=== PATIENT | female | born 1985 | race Caucasian/White ===

== ENCOUNTER 2018-10-05 07:37 | Observation (INO) | payer MEDICAID ==
[~2018-10-05] VITALS: Ht 167.6 cm; Wt 58.2 kg
[2018-10-05] VITALS (9 sets, daily range): BP systolic 103–128; BP diastolic 60–84
[~2018-10-05 07:37] MED LIST: NO HOME MEDS
[2018-10-05] MEDS ORDERED: cefazolin/dext.iso 2gm/100 ML IV ONE (08:15)
[2018-10-05] MEDS ORDERED: ringers solution, lacted 1,000 ML IV SCH ×2 (08:15→13:39)
[2018-10-05] MEDS ORDERED: famotidine 20mg tablet PO ONE (08:15)
[2018-10-05 10:17] LABS: BASOPHILS % (AUTO) 0.5 % (0-1); EOSINOPHILS # (AUTO) 0.1 X10'3 (0-0.9); EOSINOPHILS % (AUTO) 2.7 % (0-6); LYMPHOCYTES # (AUTO) 1.3 X10'3 (1.1-4.8); LYMPHOCYTES % (AUTO) 28.3 % (21-51); MEAN CORPUSCULAR HGB CONC 33.1 g/dL (33.0-36.5); MEAN CORPUSCULAR VOLUME 84.4 FL (78-98); MEAN PLATELET VOLUME 8.7 FL (7.4-10.4); MONOCYTES # (AUTO) 0.3 X10'3 (0-0.9); NEUTROPHILS # (AUTO) 2.8 X10'3 (1.8-7.7); NEUTROPHILS % (AUTO) 61.5 % (42-75); PRE OP HEMATOCRIT 36.1 % (35.0-45.0); PRE OP PLATELET COUNT 213 X10'3 (140-440); RED BLOOD COUNT 4.28 X10'6 (4.20-5.60); RED CELL DISTRIBUTION WIDTH 14.2 % (11.5-14.5)
[2018-10-05 10:28] LABS: ALBUMIN 3.6 G/DL (3.4-5.0); ALBUMIN/GLOBULIN RATIO 0.9 (1.1-1.5); ALKALINE PHOSPHATASE 72 IU/L (46-116); BLOOD UREA NITROGEN 11 MG/DL (7-18); BUN/CREATININE RATIO 18.3 (6.6-38.0); CALCIUM 8.5 MG/DL (8.5-10.1); CHLORIDE 104 MMOL/L (99-107); PRE OP ALT 27 U/L (30-65); PRE OP ANION GAP 10 (8-16); PRE OP AST 15 U/L (10-37); PRE OP BILIRUB, TOTAL 0.5 MG/DL (0.0-1.0); PRE OP GLUCOSE 90 MG/DL (70-104); PRE OP SODIUM 139 MMOL/L (135-145); TOTAL CARBON DIOXIDE 25.4 MMOL/L (24-32); TOTAL PROTEIN 7.5 G/DL (6.4-8.2); eGFR > 90 ML/MIN
[2018-10-05 10:30] LABS: PREOP HCG, QL SERUM NEGATIVE (NEGATIVE)
[2018-10-05] MEDS ORDERED: BUPIVAcaine/PF 2.5 mg/ml (0.25%) 30ml vial ONE ×2 (12:17→12:46)
[2018-10-05] MEDS ORDERED: sevoflurane 250ml liquid IH ONE (12:35)
[2018-10-05] MEDS ORDERED: midazolam 2 mg/2 ml injection ONE (12:43)
[2018-10-05] MEDS ORDERED: fentaNYL/PF 50MCG/1 ML 2ML syringe ONE ×2 (12:43→13:18)
[2018-10-05] MEDS ORDERED: BUPIVACAINE liposomal/PF 13.3 MG/ML vial IM ONE (12:51)
[2018-10-05] MEDS ORDERED: naloxone 0.4 mg/ml inj IV PRN (13:05)
[2018-10-05] MEDS ORDERED: ondansetron/PF 4mg/2ml inj IV PRN ×2 (13:05→13:40)
[2018-10-05] MEDS ORDERED: CADD PCA waste documentation MC PRN (13:05)
[2018-10-05] MEDS ORDERED: proCHLORperazine 10 MG/2 ml inj IV PRN (13:40)
[2018-10-05] MEDS ORDERED: meperidine/PF 25mg/ml syringe IV PRN ×3 (13:40)
[2018-10-05] MEDS ORDERED: morphine 4 MG/ML inj SYRINge IV PRN ×2 (13:40)
--- NOTE | 2018-10-05 13:49 | NUR ---
Received from OR via surgical bed, accompanied by Anesthesiologist Finn and report given by Anesthesiolgist. Pt has IV to right foot with IVF at 100/hr, lap sites x3 with bandaids CDI. O2 mask at 10L, all VS stable. SCDs placed on patient.
[2018-10-05] MEDS: HYDROmorphone/NS 1 mg/ml CADD 50 ML IV SCH ×6 (14:27→23:00)
[2018-10-05] MEDS ORDERED: LIDOcaine 2% (20mg/ml) 5ml vial ONE (14:30)
[2018-10-05] MEDS ORDERED: dexamethasone sod phosphate 4mg/ml inj. ONE (14:30)
[2018-10-05] MEDS ORDERED: rocuronium 10mg/ml inj IV ONE (14:30)
[2018-10-05] MEDS ORDERED: neostigmine methylsulfate 1 MG/ML 10ml vial ONE (14:30)
[2018-10-05] MEDS ORDERED: ondansetron/PF 4mg/2ml inj ONE (14:30)
[2018-10-05] MEDS ORDERED: glycopyrrolate 0.2mg/ml inj ONE (14:30)
[2018-10-05] MEDS ORDERED: propofol inj 20 ML IV ONE (14:30)
[2018-10-05] MEDS ORDERED: sugammadex 200mg/2ml injection IV ONE (14:33)
--- NOTE | 2018-10-05 15:09 | NUR ---
Report called to receiving nurse. Transferred via surgical bed with SCDs on. Belongings on bed with patient and family at bedside. Special Issues communicated to receiving nurse MIRANDA Guillory. Pt alert and oriented, VS stable, post op vitals begun in new room with BLL, call light given to patient. MEDICAL SECRETARY pump education reinforced with mother bedside. Lap sites remain CDI, IV in foot remains intact. New large volume bag with potassium to be sent up by pharmacy.
--- NOTE | 2018-10-05 15:13 | NUR ---
Prescription medications placed in patient cabinet in room, Pastora JEAN notified that mother is not in room at this time. Pastora states she will give mother of patient prescription meds.
--- NOTE | 2018-10-05 15:16 | NUR ---
Patient arrived to unit after receiving report from Fany JEAN.
--- NOTE | 2018-10-05 15:18 | NUR ---
Medications for patients discharge have been given to patients mother to take home. Pain medications from [facility] bedside service.
[2018-10-05] MEDS: ceFAZolin 1GM/D5W- ADD-VANTAGE 50 ML IV SCH (16:25)
[2018-10-05] MEDS: ketorolac trometh. 30mg/ml inj. IV PRN ×2 (16:25→22:37)
--- NOTE | 2018-10-05 18:30 | NUR ---
Patient in room RAMBO 340. I have received report from MIRANDA Guillory and had the opportunity to ask questions and assume patient care.
--- NOTE | 2018-10-05 18:45 | NUR ---
number given/attempts on CADD pump accidentally cleared.
[2018-10-05] MEDS: potassium CL 20mEq in D5-1/2NS 1,000 ML IV SCH ×2 (21:05→22:43)
[2018-10-06] MEDS: ceFAZolin 1GM/D5W- ADD-VANTAGE 50 ML IV SCH ×2 (00:18→07:47)
[2018-10-06 00:46] VITALS: BP 109/68
[2018-10-06] MEDS: HYDROmorphone/NS 1 mg/ml CADD 50 ML IV SCH ×8 (01:00→15:00)
[2018-10-06 04:11] VITALS: BP 123/66
[2018-10-06] MEDS: potassium CL 20mEq in D5-1/2NS 1,000 ML IV SCH ×2 (06:53→13:05)
--- NOTE | 2018-10-06 06:56 | NUR ---
Problems reprioritized. Patient report given, questions answered & plan of care reviewed with MIRANDA Guzman.
--- NOTE | 2018-10-06 06:58 | NUR ---
Patient in room [facility]BO 340. I have received report from Yovany JEAN and had the opportunity to ask questions and assume patient care.
[2018-10-06 07:00] VITALS: BP 110/70
[2018-10-06] MEDS ORDERED: HYDR-4353 PO (15:46)
--- NOTE | 2018-10-06 17:06 | NUR ---
patient resting and sleeping most of shift. using Cadd pump with affect. Seen by DR Arceo is for discharge. patient had to wait for ride. All DC instructions given to patient. patient discharged home with parent 1630hrs in stable condition. [place] prescription had been given to patient 10/05/18 and mother had taken it home per patient. .
== END 2018-10-06 17:08 | disposition home or self-care (01) ==
LOC: PAS 07:37 → SUR 3N 15:53
PROVIDERS: ADMIT Surgery; ATTEND Surgery
DX: K42.9 Umbilical hernia without obstruction or gangrene (principal); N28.89 Other specified disorders of kidney and ureter
CPT/HCPCS: 36415; 49653; 80053; 84703; 85025; 87081; 93005; 96365; 96366; 96375; 96376; C1713; C1758; C1781; C9290; C9399; G0378; J0690; J1100; J1170; J1885; J2001; J2250; J2405; J2704; J2710; J3010; J3480; J3490; J7120; A4215; A4618; A7000

== ENCOUNTER 2018-12-24 09:13 | Emergency (ER) | payer MEDICAID ==
[~2018-12-24] VITALS: Ht 167.6 cm; Wt 57.1 kg
[2018-12-24 09:16] VITALS: BP 131/81
[2018-12-24] MEDS ORDERED: penicillin V potassium 500mg tablet PO ONE (09:25)
[2018-12-24] MEDS ORDERED: PENI500T2 PO (09:29)
== END 2018-12-24 09:35 | disposition home or self-care (01) ==
LOC: ER 09:14
DX: K04.7 Periapical abscess without sinus (principal); F17.200 Nicotine dependence, unspecified, uncomplicated; F12.90 Cannabis use, unspecified, uncomplicated; Z88.2 Allergy status to sulfonamides; Z79.899 Other long term (current) drug therapy
CPT/HCPCS: 99283

== ENCOUNTER 2019-03-05 22:28 | Inpatient (IN) | payer MEDICAID ==
[~2019-03-05] VITALS: Ht 167.6 cm; Wt 54.5 kg
[2019-03-05] MEDS ORDERED: HYDROmorphone 2mg tablet PO ONE (22:45)
[2019-03-05] MEDS ORDERED: ketorolac trometh inj. 60 MG/2 ML VIAL IM ONE (22:45)
[2019-03-05] MEDS ORDERED: METH-603 PO (23:25)
[2019-03-05 23:50] LABS: BASOPHILS % (AUTO) 0.2 % (0-1); EOSINOPHILS % (AUTO) 0.1 % (0-6); HEMATOCRIT 33.7 % (35.0-45.0); HEMOGLOBIN 11.6 g/dl (12.0-16.0); LYMPHOCYTES # (AUTO) 1.1 X10'3 (1.1-4.8); LYMPHOCYTES % (AUTO) 9.6 % (21-51); MEAN CORPUSCULAR HEMOGLOBIN 28.5 PG (27.0-31.0); MEAN CORPUSCULAR HGB CONC 34.5 g/dL (33.0-36.5); MEAN CORPUSCULAR VOLUME 82.4 FL (78-98); MEAN PLATELET VOLUME 8.2 FL (7.4-10.4); MONOCYTES # (AUTO) 0.9 X10'3 (0-0.9); MONOCYTES % (AUTO) 7.5 % (2-12); NEUTROPHILS # (AUTO) 9.5 X10'3 (1.8-7.7); NEUTROPHILS % (AUTO) 82.6 % (42-75); PLATELET COUNT 197 X10'3 (140-440); RED BLOOD COUNT 4.09 X10'6 (4.20-5.60); RED CELL DISTRIBUTION WIDTH 14.6 % (11.5-14.5); WHITE BLOOD COUNT 11.5 X10'3 (4.5-11.0)
[2019-03-06 00:03] LABS: PARTIAL THROMBOPLASTIN TIME 31 SECONDS (22-32)
[2019-03-06 00:05] LABS: TOTAL CELLS COUNTED 100
[2019-03-06 00:06] LABS: PLATELET ESTIMATE NORMAL
[2019-03-06 00:09] LABS: CLARITY,URINE CLEAR (Clear); COLOR,URINE YELLOW (Yellow); GLUCOSE, URINE NEGATIVE (Neg); KETONES,URINE NEGATIVE (Neg); LEUKOCYTE ESTERASE ,URINE NEGATIVE (Neg); NITRITES, URINE NEGATIVE (Neg); OCCULT BLOOD,URINE NEGATIVE (Neg); PH,URINE 7.5 (4.8-8.0); PROTEIN,URINE NEGATIVE (Neg)
[2019-03-06 00:11] LABS: UA COLLECTION TYPE CLN CATCH MIDSTREAM
[2019-03-06 00:11] LABS: ALANINE AMINOTRANSFERASE 51 U/L (12-78); ALBUMIN 3.1 G/DL (3.4-5.0); ALBUMIN/GLOBULIN RATIO 0.7 (1.1-1.5); ALKALINE PHOSPHATASE 99 IU/L (46-116); ANION GAP 9 (8-16); ASPARTATE AMINO TRANSFERASE 35 U/L (10-37); BILIRUBIN,TOTAL 0.5 MG/DL (0.1-1.0); BLOOD UREA NITROGEN 8 MG/DL (7-18); BUN/CREATININE RATIO 11.3 (6.6-38.0); C-REACTIVE PROTEIN 9.04 MG/DL (0.0-0.5); CALCIUM 7.8 MG/DL (8.5-10.1); CHLORIDE 97 MMOL/L (99-107); CREATININE 0.71 MG/DL (0.40-0.90); GLUCOSE 116 MG/DL (70-104); POTASSIUM 3.6 MMOL/L (3.5-5.1); SODIUM 131 MMOL/L (135-145); TOTAL CARBON DIOXIDE 25.1 MMOL/L (24-32); TOTAL PROTEIN 7.3 G/DL (6.4-8.2); eGFR > 90 ML/MIN
[2019-03-06 01:00] LABS: URINE AMPHETAMINE SCREEN NEGATIVE (Neg); URINE BARBITUATE SCREEN NEGATIVE (Neg); URINE BENZODIAZEPINES SCREEN NEGATIVE (Neg); URINE CANNABINOID SCREEN NEGATIVE (Neg); URINE COCAINE SCREEN NEGATIVE (Neg); URINE METHADONE SCREEN POSITIVE (Neg); URINE OPIATE SCREEN POSITIVE (Neg); URINE PHENCYCLIDINE SCREEN NEGATIVE (Neg)
[2019-03-06] MEDS ORDERED: VANCOMYCIN 1gm/H2O 200ml PB 200 ML IV ONE (01:45)
[2019-03-06] MEDS ORDERED: sodium chloride 0.45% 1,000 ML IV SCH (02:22)
[2019-03-06] MEDS ORDERED: magnesium 4gm in 100ml NS 100 ML IV PRN (02:25)
[2019-03-06] MEDS ORDERED: magnesium Cl slow-release 64mg tablet PO PRN (02:25)
[2019-03-06] MEDS ORDERED: morphine 2 MG/ML inj. syringe IV PRN ×2 (02:25)
[2019-03-06] MEDS ORDERED: potassium CL 10mEq/100ml bag 100 ML IV PRN ×2 (02:25)
[2019-03-06] MEDS ORDERED: ondansetron/PF 4mg/2ml inj IV PRN (02:25)
[2019-03-06] MEDS ORDERED: magnesium hydroxide 30ml (MOM) UD suspension PO PRN (02:25)
[2019-03-06] MEDS ORDERED: mag hydrox/Alum hydrox/simeth 30ml oral suspension PO PRN (02:25)
[2019-03-06] MEDS ORDERED: potassium Cl 20 mEq SR tablet PO PRN ×2 (02:25)
[2019-03-06] MEDS ORDERED: acetaminophen 325mg tablet PO PRN (02:25)
[2019-03-06] MEDS ORDERED: HYDROcodone/acetaminophen 5mg/325mg tablet PO PRN (02:25)
[2019-03-06] MEDS ORDERED: magnesium 2GM in 50ml NS 50 ML IV PRN (02:25)
[2019-03-06] MEDS ORDERED: ibuprofen tablet 400 MG TABLET PO PRN (03:30)
[2019-03-06 05:30] VITALS: BP 98/60
[2019-03-06] MEDS: normal saline 1000ml 1,000 ML IV SCH ×2 (05:30→14:22)
[2019-03-06 06:00] VITALS: BP 98/64
--- NOTE | 2019-03-06 06:38 | NUR ---
Patient in room ED 12. I have received report from MIRANDA Main and had the opportunity to ask questions and assume patient care.
[2019-03-06] MEDS: K and/or MAG REPLACEMENT MC SCH ×2 (08:00→21:57)
[2019-03-06] MEDS: famotidine 10mg tablet PO SCH ×2 (08:30→22:11)
[2019-03-06] MEDS: lactobacillus rhamnosus 10,000 MMU CELLS/CAPSULE PO SCH ×2 (08:31→22:11)
[2019-03-06] MEDS: ibuprofen tablet 400 MG TABLET PO SCH ×3 (08:31→22:14)
[2019-03-06] MEDS: methadone 10mg tablet PO SCH (08:31)
[2019-03-06] MEDS: enoxaparin 40mg/0.4ml syringe SQ SCH (08:32)
[2019-03-06 08:56] LABS: BASOPHILS % (AUTO) 0.3 % (0-1); EOSINOPHILS % (AUTO) 0.1 % (0-6); HEMATOCRIT 35.3 % (35.0-45.0); LYMPHOCYTES # (AUTO) 1.4 X10'3 (1.1-4.8); LYMPHOCYTES % (AUTO) 13.2 % (21-51); MEAN CORPUSCULAR HEMOGLOBIN 28.5 PG (27.0-31.0); MEAN CORPUSCULAR HGB CONC 33.9 g/dL (33.0-36.5); MEAN CORPUSCULAR VOLUME 84.2 FL (78-98); MEAN PLATELET VOLUME 8.6 FL (7.4-10.4); MONOCYTES # (AUTO) 1.1 X10'3 (0-0.9); NEUTROPHILS # (AUTO) 8.2 X10'3 (1.8-7.7); NEUTROPHILS % (AUTO) 76.4 % (42-75); PLATELET COUNT 215 X10'3 (140-440); RED BLOOD COUNT 4.19 X10'6 (4.20-5.60); RED CELL DISTRIBUTION WIDTH 14.7 % (11.5-14.5); WHITE BLOOD COUNT 10.8 X10'3 (4.5-11.0)
[2019-03-06 09:03] LABS: ALBUMIN 3.1 G/DL (3.4-5.0); ANION GAP 4 (8-16); BLOOD UREA NITROGEN 9 MG/DL (7-18); CALCIUM 8.1 MG/DL (8.5-10.1); CHLORIDE 102 MMOL/L (99-107); CREATININE 0.69 MG/DL (0.40-0.90); GLUCOSE 104 MG/DL (70-104); MAGNESIUM 2.5 MG/DL (1.5-2.4); POTASSIUM 3.4 MMOL/L (3.5-5.1); SODIUM 136 MMOL/L (135-145); TOTAL CARBON DIOXIDE 29.9 MMOL/L (24-32); eGFR > 90 ML/MIN
[2019-03-06] MEDS: piperacillin/tazo 3.375gm/50ml 50 ML IV SCH ×2 (09:53→16:48)
[2019-03-06 11:00] VITALS: BP 91/59
--- NOTE | 2019-03-06 12:23 | NUR ---
sent to dr morales PAGER ID: [phone] MESSAGE: RE: Marilou Pyle [id number]. No diet orders for pt. Has not eaten. Vanna [phone]
[2019-03-06] MEDS: VANCOMYCIN 750MG IV in NS 250 ML IV SCH ×2 (12:26→22:12)
[2019-03-06] MEDS: ketorolac trometh. 30mg/ml inj. IV PRN ×2 (12:26→22:20)
--- NOTE | 2019-03-06 18:29 | NUR ---
Patient in room PCU 3023. I have received report from Vanna JEAN and had the opportunity to ask questions and assume patient care.
[2019-03-06 18:30] VITALS: BP 102/61
--- NOTE | 2019-03-06 18:36 | NUR ---
Problems reprioritized. Patient report given, questions answered & plan of care reviewed with MIRANDA Araiza.
[2019-03-06 22:30] VITALS: BP 95/54
[2019-03-07] MEDS: normal saline 1000ml 1,000 ML IV SCH ×2 (00:18→10:23)
[2019-03-07] MEDS: piperacillin/tazo 3.375gm/50ml 50 ML IV SCH ×3 (00:18→15:23)
--- NOTE | 2019-03-07 01:16 | NUR ---
pulled patient's motrin during night med pass. opened the package and then the patient refused. wasted the motrin in the waste bin.
[2019-03-07 02:30] VITALS: BP 97/60
[2019-03-07 04:13] LABS: BASOPHILS % (AUTO) 0.2 % (0-1); EOSINOPHILS % (AUTO) 0.2 % (0-6); HEMATOCRIT 31.7 % (35.0-45.0); HEMOGLOBIN 10.7 g/dl (12.0-16.0); LYMPHOCYTES % (AUTO) 9.4 % (21-51); MEAN CORPUSCULAR HEMOGLOBIN 28.3 PG (27.0-31.0); MEAN CORPUSCULAR HGB CONC 33.6 g/dL (33.0-36.5); MEAN CORPUSCULAR VOLUME 84.2 FL (78-98); MEAN PLATELET VOLUME 8.3 FL (7.4-10.4); MONOCYTES # (AUTO) 0.9 X10'3 (0-0.9); NEUTROPHILS % (AUTO) 82.2 % (42-75); PLATELET COUNT 216 X10'3 (140-440); RED BLOOD COUNT 3.77 X10'6 (4.20-5.60); RED CELL DISTRIBUTION WIDTH 14.8 % (11.5-14.5)
[2019-03-07 04:27] LABS: ALBUMIN 2.5 G/DL (3.4-5.0); ANION GAP 7 (8-16); BLOOD UREA NITROGEN 8 MG/DL (7-18); BUN/CREATININE RATIO 11.8 (6.6-38.0); CALCIUM 7.5 MG/DL (8.5-10.1); CHLORIDE 105 MMOL/L (99-107); CREATININE 0.68 MG/DL (0.40-0.90); GLUCOSE 105 MG/DL (70-104); MAGNESIUM 2.3 MG/DL (1.5-2.4); POTASSIUM 3.7 MMOL/L (3.5-5.1); SODIUM 137 MMOL/L (135-145); TOTAL CARBON DIOXIDE 25.1 MMOL/L (24-32); VANCOMYCIN,TROUGH 9.4 UG/ML (6.0-14.0); eGFR > 90 ML/MIN
[2019-03-07] MEDS: VANCOMYCIN 750MG IV in NS 250 ML IV SCH ×2 (04:40→12:08)
[2019-03-07 06:00] VITALS: BP 99/69
--- NOTE | 2019-03-07 06:07 | NUR ---
Problems reprioritized. Patient report given, questions answered & plan of care reviewed with Vanna RN.
--- NOTE | 2019-03-07 06:25 | NUR ---
Patient in room PCU 3023. I have received report from MIRANDA Araiza and had the opportunity to ask questions and assume patient care.
[2019-03-07] MEDS: famotidine 10mg tablet PO SCH ×2 (07:08→20:18)
[2019-03-07] MEDS: ibuprofen tablet 400 MG TABLET PO SCH ×3 (07:08→20:18)
[2019-03-07] MEDS: lactobacillus rhamnosus 10,000 MMU CELLS/CAPSULE PO SCH ×2 (07:08→20:18)
[2019-03-07] MEDS: enoxaparin 40mg/0.4ml syringe SQ SCH (07:09)
[2019-03-07] MEDS: methadone 10mg tablet PO SCH (07:10)
[2019-03-07] MEDS: K and/or MAG REPLACEMENT MC SCH ×2 (07:16→20:00)
[2019-03-07] MEDS: ketorolac trometh. 30mg/ml inj. IV PRN ×3 (07:20→23:36)
[2019-03-07 11:00] VITALS: BP 98/57
[2019-03-07] MEDS ORDERED: VANCOMYCIN LEVEL IV ONE ×2 (11:30→19:30)
--- NOTE | 2019-03-07 12:42 | NUR ---
Patient in room PCU 3016. I have received report from Vanna JEAN and had the opportunity to ask questions and assume patient care. Will continue to monitor.
--- NOTE | 2019-03-07 12:42 | NUR ---
Problems reprioritized. Patient report given, questions answered & plan of care reviewed with MIRANDA Sneed.
[2019-03-07 15:00] VITALS: BP 83/51
--- NOTE | 2019-03-07 15:22 | NUR ---
Administered dose of Toradol 15 mg IV at. Medication was scanned but was not saved into the system. Unable to add dosage manually into computer. Addendum: 03/07/19 at 1819 by Nedra Ballard RN administered at 1525
--- NOTE | 2019-03-07 18:11 | NUR ---
Problems reprioritized. Patient report given, questions answered & plan of care reviewed with Jose G JEAN
--- NOTE | 2019-03-07 18:14 | NUR ---
Patient in room PCU 3023. I have received report from Nedra JEAN and had the opportunity to ask questions and assume patient care.
[2019-03-07 18:30] VITALS: BP 87/44
[2019-03-07 22:48] VITALS: BP 97/65
[2019-03-08 02:30] VITALS: BP 89/53
[2019-03-08 05:07] LABS: BASOPHILS % (AUTO) 0.1 % (0-1); EOSINOPHILS # (AUTO) 0.1 X10'3 (0-0.9); EOSINOPHILS % (AUTO) 0.5 % (0-6); HEMATOCRIT 31.7 % (35.0-45.0); HEMOGLOBIN 10.7 g/dl (12.0-16.0); LYMPHOCYTES # (AUTO) 1.4 X10'3 (1.1-4.8); LYMPHOCYTES % (AUTO) 13.7 % (21-51); MEAN CORPUSCULAR HEMOGLOBIN 28.5 PG (27.0-31.0); MEAN CORPUSCULAR HGB CONC 33.6 g/dL (33.0-36.5); MEAN CORPUSCULAR VOLUME 84.8 FL (78-98); MEAN PLATELET VOLUME 8.1 FL (7.4-10.4); MONOCYTES # (AUTO) 0.8 X10'3 (0-0.9); NEUTROPHILS # (AUTO) 7.8 X10'3 (1.8-7.7); NEUTROPHILS % (AUTO) 77.7 % (42-75); PLATELET COUNT 294 X10'3 (140-440); RED BLOOD COUNT 3.74 X10'6 (4.20-5.60); WHITE BLOOD COUNT 10.1 X10'3 (4.5-11.0)
[2019-03-08 05:24] LABS: ALBUMIN 2.4 G/DL (3.4-5.0); ANION GAP 6 (8-16); BLOOD UREA NITROGEN 7 MG/DL (7-18); BUN/CREATININE RATIO 10.3 (6.6-38.0); CHLORIDE 107 MMOL/L (99-107); CREATININE 0.68 MG/DL (0.40-0.90); GLUCOSE 107 MG/DL (70-104); MAGNESIUM 2.3 MG/DL (1.5-2.4); POTASSIUM 3.5 MMOL/L (3.5-5.1); SODIUM 141 MMOL/L (135-145); eGFR > 90 ML/MIN
[2019-03-08 06:00] VITALS: BP 108/72
--- NOTE | 2019-03-08 06:28 | NUR ---
Problems reprioritized. Patient report given, questions answered & plan of care reviewed with Raysa JEAN.
--- NOTE | 2019-03-08 07:01 | NUR ---
Patient in room PCU 3023. I have received report from Jose G JEAN and had the opportunity to ask questions and assume patient care. All patient needs met at this time.
[2019-03-08] MEDS: lactobacillus rhamnosus 10,000 MMU CELLS/CAPSULE PO SCH ×2 (07:29→21:43)
[2019-03-08] MEDS: famotidine 10mg tablet PO SCH ×2 (07:29→21:43)
[2019-03-08] MEDS: ibuprofen tablet 400 MG TABLET PO SCH ×3 (07:29→21:43)
[2019-03-08] MEDS: enoxaparin 40mg/0.4ml syringe SQ SCH (07:29)
[2019-03-08] MEDS: methadone 10mg tablet PO SCH (07:30)
[2019-03-08] MEDS: K and/or MAG REPLACEMENT MC SCH ×2 (08:00→21:21)
[2019-03-08] MEDS: ketorolac trometh. 30mg/ml inj. IV PRN (08:01)
[2019-03-08 11:00] VITALS: BP 85/55
[2019-03-08] MEDS: vancomycin inj. 750 MG in normal saline 250ml IV soln 250 ML IV SCH ×2 (11:12→16:55)
[2019-03-08 15:00] VITALS: BP 101/64
[2019-03-08] MEDS: ketorolac tromethamine 15mg/ml inj. IV PRN ×2 (16:51→22:41)
--- NOTE | 2019-03-08 18:07 | NUR ---
Problems reprioritized. Patient report given, questions answered & plan of care reviewed with Jose G JEAN. All patient needs met at this time.
--- NOTE | 2019-03-08 18:28 | NUR ---
Patient in room PCU 3011. I have received report from Raysa JEAN and had the opportunity to ask questions and assume patient care.
[2019-03-08 18:30] VITALS: BP 88/50
[2019-03-08] MEDS: gabapentin 100mg capsule PO SCH (21:43)
[2019-03-08 22:30] VITALS: BP 92/55
[2019-03-09] MEDS: vancomycin inj. 750 MG in normal saline 250ml IV soln 250 ML IV SCH ×2 (00:35→08:49)
[2019-03-09 02:30] VITALS: BP 88/57
[2019-03-09 04:36] LABS: BASOPHILS # (AUTO) 0.1 X10'3 (0-0.2); BASOPHILS % (AUTO) 0.8 % (0-1); EOSINOPHILS # (AUTO) 0.1 X10'3 (0-0.9); HEMATOCRIT 27.7 % (35.0-45.0); HEMOGLOBIN 9.4 g/dl (12.0-16.0); LYMPHOCYTES # (AUTO) 1.6 X10'3 (1.1-4.8); LYMPHOCYTES % (AUTO) 19.1 % (21-51); MEAN CORPUSCULAR HEMOGLOBIN 28.4 PG (27.0-31.0); MEAN CORPUSCULAR HGB CONC 33.9 g/dL (33.0-36.5); MEAN CORPUSCULAR VOLUME 83.8 FL (78-98); MEAN PLATELET VOLUME 7.8 FL (7.4-10.4); MONOCYTES # (AUTO) 0.7 X10'3 (0-0.9); MONOCYTES % (AUTO) 8.2 % (2-12); NEUTROPHILS # (AUTO) 5.9 X10'3 (1.8-7.7); NEUTROPHILS % (AUTO) 70.9 % (42-75); PLATELET COUNT 278 X10'3 (140-440); RED CELL DISTRIBUTION WIDTH 14.7 % (11.5-14.5); WHITE BLOOD COUNT 8.3 X10'3 (4.5-11.0)
[2019-03-09 04:52] LABS: ALBUMIN 2.1 G/DL (3.4-5.0); ANION GAP 3 (8-16); BLOOD UREA NITROGEN 9 MG/DL (7-18); BUN/CREATININE RATIO 13.6 (6.6-38.0); CALCIUM 7.9 MG/DL (8.5-10.1); CHLORIDE 108 MMOL/L (99-107); CREATININE 0.66 MG/DL (0.40-0.90); GLUCOSE 88 MG/DL (70-104); MAGNESIUM 2.2 MG/DL (1.5-2.4); POTASSIUM 3.4 MMOL/L (3.5-5.1); SODIUM 142 MMOL/L (135-145); TOTAL CARBON DIOXIDE 31.5 MMOL/L (24-32); eGFR > 90 ML/MIN
--- NOTE | 2019-03-09 06:07 | NUR ---
Patient in room PCU 3011. I have received report from MIRANDA Araiza and had the opportunity to ask questions and assume patient care.
[2019-03-09 07:00] VITALS: BP 96/59
[2019-03-09] MEDS ORDERED: VANCOMYCIN LEVEL IV ONE ×2 (08:30→16:30)
[2019-03-09] MEDS: ibuprofen tablet 400 MG TABLET PO SCH ×2 (08:49→12:29)
[2019-03-09] MEDS: gabapentin 100mg capsule PO SCH ×2 (08:49→12:29)
[2019-03-09] MEDS: famotidine 10mg tablet PO SCH (08:49)
[2019-03-09] MEDS: methadone 10mg tablet PO SCH (08:50)
[2019-03-09] MEDS: enoxaparin 40mg/0.4ml syringe SQ SCH (08:51)
[2019-03-09] MEDS: K and/or MAG REPLACEMENT MC SCH (08:52)
[2019-03-09] MEDS: lactobacillus rhamnosus 10,000 MMU CELLS/CAPSULE PO SCH (08:53)
[2019-03-09] MEDS ORDERED: K and/or MAG REPLACEMENT MC SCH (09:45)
[2019-03-09] MEDS ORDERED: potassium Cl 20 mEq SR tablet PO PRN (09:45)
[2019-03-09] MEDS: potassium Cl 20 mEq SR tablet PO PRN ×2 (10:02→14:13)
[2019-03-09] MEDS: ketorolac tromethamine 15mg/ml inj. IV PRN (10:03)
[2019-03-09 11:00] VITALS: BP 107/65
--- NOTE | 2019-03-09 14:36 | NUR ---
Page Dr. Dowd PAGER ID: [phone] MESSAGE: Room 3011 Marilou Pyle: PT has cleared her for discharge and they stated she will need a front wheel walker. Thank you, Rosa M ext [phone].
[2019-03-09] MEDS ORDERED: GABA-530 PO (14:43)
--- NOTE | 2019-03-09 16:00 | NUR ---
Per MD orders, pt is stable for discharge to home. Discharge paperwork reviewed and signed. Tele monitor discontinued. Extended PIV discontinued with cannula intact. Pts belongings sent home with patient. Informed pt to make a follow up appointment with Dr. Nava (PCP) within a week. Pt sent down via wheelchair by aid to lobby with family member.
== END 2019-03-09 16:00 | disposition home or self-care (01) | DRG 347 ==
LOC: ER 22:28 → ED HOLD 03-06 02:22 → PCU 3S 03-06 06:50
PROVIDERS: ADMIT Hospitalist; ATTEND Internal Medicine
DX: M54.9 Dorsalgia, unspecified (principal); R78.81 Bacteremia; D72.825 Bandemia; G89.4 Chronic pain syndrome; Z76.5 Malingerer [conscious simulation]; Z88.2 Allergy status to sulfonamides
CPT/HCPCS: 36415; 72110; 72131; 72192; 73502; 73721; 76937; 80048; 80053; 80202; 80305; 81003; 83605; 83735; 84145; 85007; 85025; 85610; 85651; 85730; 86140; 87040; 87077; 87081; 87186; 93306; 96372; 97110; 97163; 97530; 99285; G0378; J1650; J1885; J2543; J3370; J7030; J7050

== ENCOUNTER 2019-03-10 17:48 | Inpatient (IN) | payer MEDICAID ==
[~2019-03-10] VITALS: Ht 167.6 cm; Wt 54.5 kg
[~2019-03-10 17:48] MED LIST changes: +GABA-530 PO; +METH-603 PO; -NO HOME MEDS
[2019-03-10 19:30] VITALS: BP 129/86
[2019-03-10] MEDS ORDERED: acetaminophen 325mg tablet PO PRN ×2 (19:55)
[2019-03-10] MEDS ORDERED: magnesium 2GM in 50ml NS 50 ML IV PRN (19:55)
[2019-03-10] MEDS ORDERED: mag hydrox/Alum hydrox/simeth 30ml oral suspension PO PRN (19:55)
[2019-03-10] MEDS ORDERED: ketorolac trometh. 30mg/ml inj. IM PRN (19:55)
[2019-03-10] MEDS ORDERED: ondansetron/PF 4mg/2ml inj IV PRN (19:55)
[2019-03-10] MEDS ORDERED: potassium Cl 20 mEq SR tablet PO PRN ×2 (19:55)
[2019-03-10] MEDS ORDERED: potassium CL 10mEq/100ml bag 100 ML IV PRN ×2 (19:55)
[2019-03-10] MEDS ORDERED: magnesium 4gm in 100ml NS 100 ML IV PRN (19:55)
[2019-03-10] MEDS ORDERED: magnesium Cl slow-release 64mg tablet PO PRN (19:55)
[2019-03-10] MEDS: K and/or MAG REPLACEMENT MC SCH (20:00)
[2019-03-10] MEDS ORDERED: famotidine 20mg tablet PO SCH (20:00)
[2019-03-10] MEDS ORDERED: vancomycin/NS 1 GM ADD-VANTAGE 250 ML X 1 DOSE IV ONE (21:00)
[2019-03-10] MEDS: ketorolac tromethamine 15mg/ml inj. IV PRN (22:29)
[2019-03-10] MEDS: naproxen sodium 220mg tablet PO SCH (22:50)
[2019-03-11] VITALS: BP 107/64
[2019-03-11 05:08] LABS: BASOPHILS % (AUTO) 0.3 % (0-1); EOSINOPHILS # (AUTO) 0.1 X10'3 (0-0.9); EOSINOPHILS % (AUTO) 0.8 % (0-6); HEMATOCRIT 31.1 % (35.0-45.0); HEMOGLOBIN 10.4 g/dl (12.0-16.0); LYMPHOCYTES # (AUTO) 1.9 X10'3 (1.1-4.8); LYMPHOCYTES % (AUTO) 15.6 % (21-51); MEAN CORPUSCULAR HEMOGLOBIN 27.7 PG (27.0-31.0); MEAN CORPUSCULAR HGB CONC 33.4 g/dL (33.0-36.5); MEAN PLATELET VOLUME 8.2 FL (7.4-10.4); MONOCYTES # (AUTO) 0.8 X10'3 (0-0.9); MONOCYTES % (AUTO) 6.6 % (2-12); NEUTROPHILS # (AUTO) 9.2 X10'3 (1.8-7.7); NEUTROPHILS % (AUTO) 76.7 % (42-75); PLATELET COUNT 274 X10'3 (140-440); RED BLOOD COUNT 3.75 X10'6 (4.20-5.60); RED CELL DISTRIBUTION WIDTH 14.9 % (11.5-14.5)
[2019-03-11 05:17] LABS: ALBUMIN 2.4 G/DL (3.4-5.0); ANION GAP 5 (8-16); BLOOD UREA NITROGEN 10 MG/DL (7-18); BUN/CREATININE RATIO 14.5 (6.6-38.0); CALCIUM 8.6 MG/DL (8.5-10.1); CHLORIDE 102 MMOL/L (99-107); CREATININE 0.69 MG/DL (0.40-0.90); GLUCOSE 121 MG/DL (70-104); SODIUM 137 MMOL/L (135-145); TOTAL CARBON DIOXIDE 30.5 MMOL/L (24-32); eGFR > 90 ML/MIN
--- NOTE | 2019-03-11 06:41 | NUR ---
Patient in room RAMBO 345. I have received report from Bong JEAN and had the opportunity to ask questions and assume patient care.
[2019-03-11] MEDS: gabapentin 100mg capsule PO SCH ×3 (07:59→21:05)
[2019-03-11] MEDS: ketorolac tromethamine 15mg/ml inj. IV PRN ×2 (07:59→19:37)
[2019-03-11] MEDS: famotidine 10mg tablet PO SCH ×2 (07:59→19:39)
[2019-03-11 08:00] VITALS: BP 99/62
[2019-03-11] MEDS ORDERED: enoxaparin 40mg/0.4ml syringe SQ SCH (08:00)
[2019-03-11] MEDS: K and/or MAG REPLACEMENT MC SCH ×2 (08:00→20:00)
[2019-03-11] MEDS: methadone 10mg tablet PO SCH (08:03)
[2019-03-11] MEDS: VANCOMYCIN 750MG IV in NS 250 ML IV SCH ×2 (08:05→15:10)
[2019-03-11] MEDS ORDERED: ibuprofen tablet 400 MG TABLET PO SCH (08:30)
[2019-03-11] MEDS: enoxaparin 30mg/0.3ml syringe SQ SCH ×2 (08:35→10:48)
[2019-03-11] MEDS: naproxen sodium 220mg tablet PO SCH ×2 (10:48→19:42)
[2019-03-11 11:00] VITALS: BP 100/60
[2019-03-11 18:00] VITALS: BP 104/68
--- NOTE | 2019-03-11 18:53 | NUR ---
Problems reprioritized. Patient report given, questions answered & plan of care reviewed with Ever JEAN.
--- NOTE | 2019-03-11 19:04 | NUR ---
Patient in room RAMBO 345. I have received report from MIRANDA Gutierrez and had the opportunity to ask questions and assume patient care.
[2019-03-11] MEDS: lactobacillus rhamnosus 10,000 MMU CELLS/CAPSULE PO SCH (19:39)
[2019-03-11] MEDS: magnesium hydroxide 30ml (MOM) UD suspension PO PRN (21:05)
[2019-03-12] VITALS: BP 92/57
[2019-03-12] MEDS: VANCOMYCIN 750MG IV in NS 250 ML IV SCH (00:02)
[2019-03-12] MEDS: ketorolac tromethamine 15mg/ml inj. IV PRN ×2 (02:05→13:33)
--- NOTE | 2019-03-12 06:38 | NUR ---
Problems reprioritized. Patient report given, questions answered & plan of care reviewed with MIRANDA Emery.
--- NOTE | 2019-03-12 06:39 | NUR ---
Patient in room RAMBO 345. I have received report from Ever JEAN, and had the opportunity to ask questions and assume patient care.
--- NOTE | 2019-03-12 07:00 | NUR ---
Positive Culture for MRSA nares
[2019-03-12] MEDS ORDERED: VANCOMYCIN LEVEL IV ONE (07:30)
[2019-03-12 08:00] VITALS: BP 99/62
[2019-03-12] MEDS: K and/or MAG REPLACEMENT MC SCH ×2 (08:00→20:00)
[2019-03-12] MEDS: enoxaparin 30mg/0.3ml syringe SQ SCH (08:00)
[2019-03-12] MEDS: methadone 10mg tablet PO SCH (08:01)
[2019-03-12] MEDS: naproxen sodium 220mg tablet PO SCH ×2 (08:02→19:30)
[2019-03-12] MEDS: lactobacillus rhamnosus 10,000 MMU CELLS/CAPSULE PO SCH ×2 (08:02→19:30)
[2019-03-12] MEDS: famotidine 10mg tablet PO SCH ×2 (08:02→19:31)
[2019-03-12] MEDS: gabapentin 100mg capsule PO SCH ×3 (08:02→21:12)
--- NOTE | 2019-03-12 09:18 | NUR ---
NO IV access. Vanco Trough and Vanco dose are held, pending successful IV insertion. Lab was not able to successfully draw lab samples.
[2019-03-12 11:00] VITALS: BP 107/66
--- NOTE | 2019-03-12 11:00 | NUR ---
Attempted IV starts and lab draws unsuccessful.
[2019-03-12] MEDS ORDERED: linezolid 600mg tablet PO ONE (13:15)
[2019-03-12 18:00] VITALS: BP 102/61
--- NOTE | 2019-03-12 18:48 | NUR ---
Patient in room RAMBO 345. I have received report from MIRANDA Emery and had the opportunity to ask questions and assume patient care.
--- NOTE | 2019-03-12 20:36 | NUR ---
Refused dinner. Her mom is bringing her food. Addendum: 03/12/19 at 2036 by Ever Uribe RN Amended: Links added.
[2019-03-12] MEDS: magnesium hydroxide 30ml (MOM) UD suspension PO PRN (21:12)
[2019-03-13] VITALS: BP 94/61
[2019-03-13] MEDS: linezolid 600mg tablet PO SCH ×2 (00:43→08:20)
[2019-03-13 05:43] LABS: ALBUMIN 2.4 G/DL (3.4-5.0); ANION GAP 9 (8-16); BLOOD UREA NITROGEN 12 MG/DL (7-18); BUN/CREATININE RATIO 19.4 (6.6-38.0); CALCIUM 8.3 MG/DL (8.5-10.1); CHLORIDE 103 MMOL/L (99-107); CREATININE 0.62 MG/DL (0.40-0.90); GLUCOSE 86 MG/DL (70-104); MAGNESIUM 2.4 MG/DL (1.5-2.4); POTASSIUM 4.4 MMOL/L (3.5-5.1); SODIUM 137 MMOL/L (135-145); eGFR > 90 ML/MIN
--- NOTE | 2019-03-13 06:30 | NUR ---
Problems reprioritized. Patient report given, questions answered & plan of care reviewed with MIRANDA Oconnell.
[2019-03-13 06:37] LABS: BASOPHILS % (AUTO) 0.4 % (0-1); EOSINOPHILS # (AUTO) 0.2 X10'3 (0-0.9); EOSINOPHILS % (AUTO) 2.3 % (0-6); HEMATOCRIT 31.3 % (35.0-45.0); HEMOGLOBIN 10.4 g/dl (12.0-16.0); LYMPHOCYTES # (AUTO) 1.7 X10'3 (1.1-4.8); LYMPHOCYTES % (AUTO) 19.8 % (21-51); MEAN CORPUSCULAR HEMOGLOBIN 27.7 PG (27.0-31.0); MEAN CORPUSCULAR HGB CONC 33.2 g/dL (33.0-36.5); MEAN CORPUSCULAR VOLUME 83.3 FL (78-98); MEAN PLATELET VOLUME 6.9 FL (7.4-10.4); MONOCYTES # (AUTO) 0.5 X10'3 (0-0.9); MONOCYTES % (AUTO) 6.3 % (2-12); NEUTROPHILS # (AUTO) 6.1 X10'3 (1.8-7.7); NEUTROPHILS % (AUTO) 71.2 % (42-75); PLATELET COUNT 399 X10'3 (140-440); RED BLOOD COUNT 3.76 X10'6 (4.20-5.60); WHITE BLOOD COUNT 8.6 X10'3 (4.5-11.0)
--- NOTE | 2019-03-13 07:10 | NUR ---
Patient in room RAMBO 345. I have received report from MIRANDA Curtis and had the opportunity to ask questions and assume patient care.
[2019-03-13] MEDS: enoxaparin 30mg/0.3ml syringe SQ SCH (07:18)
[2019-03-13] MEDS: K and/or MAG REPLACEMENT MC SCH ×2 (07:19→20:00)
[2019-03-13 07:23] VITALS: BP 99/62
[2019-03-13] MEDS: gabapentin 100mg capsule PO SCH ×3 (08:20→20:21)
[2019-03-13] MEDS: naproxen sodium 220mg tablet PO SCH ×2 (08:20→20:22)
[2019-03-13] MEDS: lactobacillus rhamnosus 10,000 MMU CELLS/CAPSULE PO SCH ×2 (08:20→20:21)
[2019-03-13] MEDS: methadone 10mg tablet PO SCH (08:21)
[2019-03-13] MEDS: famotidine 10mg tablet PO SCH ×2 (08:21→20:22)
[2019-03-13 11:00] VITALS: BP 103/67
[2019-03-13] MEDS: VANCOMYCIN 750MG IV in NS 250 ML IV SCH (12:15)
--- NOTE | 2019-03-13 14:31 | NUR ---
jakox consult: Pt seen by MACARIO for written/verbal zyvox ed w/ MACARIO contact information provided. Addendum: 03/13/19 at [address] Amended: Links added.
--- NOTE | 2019-03-13 18:22 | NUR ---
Problems reprioritized. Patient report given, questions answered & plan of care reviewed with MIRANDA Curtis.
--- NOTE | 2019-03-13 18:25 | NUR ---
Received report from MIRANDA Oconnell
[2019-03-14] MEDS: VANCOMYCIN 750MG IV in NS 250 ML IV SCH ×3 (00:11→23:46)
[2019-03-14 04:17] LABS: ALBUMIN 2.5 G/DL (3.4-5.0); ANION GAP 4 (8-16); BLOOD UREA NITROGEN 14 MG/DL (7-18); BUN/CREATININE RATIO 18.4 (6.6-38.0); CALCIUM 9.1 MG/DL (8.5-10.1); CHLORIDE 106 MMOL/L (99-107); CREATININE 0.76 MG/DL (0.40-0.90); GLUCOSE 90 MG/DL (70-104); MAGNESIUM 2.3 MG/DL (1.5-2.4); POTASSIUM 4.4 MMOL/L (3.5-5.1); SODIUM 143 MMOL/L (135-145); TOTAL CARBON DIOXIDE 33.3 MMOL/L (24-32); eGFR 88 ML/MIN
[2019-03-14 04:18] LABS: BASOPHILS % (AUTO) 0.5 % (0-1); EOSINOPHILS # (AUTO) 0.2 X10'3 (0-0.9); HEMATOCRIT 29.4 % (35.0-45.0); HEMOGLOBIN 9.7 g/dl (12.0-16.0); LYMPHOCYTES # (AUTO) 1.9 X10'3 (1.1-4.8); LYMPHOCYTES % (AUTO) 29.5 % (21-51); MEAN CORPUSCULAR HEMOGLOBIN 27.4 PG (27.0-31.0); MEAN CORPUSCULAR HGB CONC 33.1 g/dL (33.0-36.5); MEAN CORPUSCULAR VOLUME 82.9 FL (78-98); MONOCYTES # (AUTO) 0.4 X10'3 (0-0.9); MONOCYTES % (AUTO) 6.7 % (2-12); NEUTROPHILS # (AUTO) 3.9 X10'3 (1.8-7.7); NEUTROPHILS % (AUTO) 60.3 % (42-75); PLATELET COUNT 429 X10'3 (140-440); RED BLOOD COUNT 3.54 X10'6 (4.20-5.60); RED CELL DISTRIBUTION WIDTH 14.9 % (11.5-14.5); WHITE BLOOD COUNT 6.5 X10'3 (4.5-11.0)
--- NOTE | 2019-03-14 06:04 | NUR ---
Problems reprioritized. Patient report given, questions answered & plan of care reviewed with MIRANDA Oconnell.
--- NOTE | 2019-03-14 06:21 | NUR ---
Patient in room RAMBO 345. I have received report from MIRANDA Curtis and had the opportunity to ask questions and assume patient care.
[2019-03-14] MEDS: K and/or MAG REPLACEMENT MC SCH ×2 (06:55→20:00)
[2019-03-14] MEDS: enoxaparin 30mg/0.3ml syringe SQ SCH (06:56)
[2019-03-14 07:11] VITALS: BP 103/65
[2019-03-14] MEDS: gabapentin 100mg capsule PO SCH ×3 (08:04→21:01)
[2019-03-14] MEDS: lactobacillus rhamnosus 10,000 MMU CELLS/CAPSULE PO SCH ×2 (08:04→21:00)
[2019-03-14] MEDS: methadone 10mg tablet PO SCH (08:04)
[2019-03-14] MEDS: naproxen sodium 220mg tablet PO SCH ×2 (08:04→21:01)
[2019-03-14] MEDS: famotidine 10mg tablet PO SCH ×2 (08:04→21:01)
[2019-03-14 11:00] VITALS: BP 107/62
--- NOTE | 2019-03-14 18:48 | NUR ---
Problems reprioritized. Patient report given, questions answered & plan of care reviewed with MIRNADA Ceballos.
[2019-03-14 20:00] VITALS: BP 106/63
[2019-03-14] MEDS ORDERED: VANCOMYCIN LEVEL IV ONE (23:30)
[2019-03-15] VITALS: BP 108/65
[2019-03-15 05:25] LABS: BASOPHILS % (AUTO) 0.4 % (0-1); EOSINOPHILS # (AUTO) 0.1 X10'3 (0-0.9); EOSINOPHILS % (AUTO) 1.9 % (0-6); HEMATOCRIT 29.5 % (35.0-45.0); HEMOGLOBIN 10.1 g/dl (12.0-16.0); LYMPHOCYTES # (AUTO) 2.1 X10'3 (1.1-4.8); LYMPHOCYTES % (AUTO) 29.3 % (21-51); MEAN CORPUSCULAR HEMOGLOBIN 28.2 PG (27.0-31.0); MEAN CORPUSCULAR HGB CONC 34.1 g/dL (33.0-36.5); MEAN CORPUSCULAR VOLUME 82.8 FL (78-98); MEAN PLATELET VOLUME 6.9 FL (7.4-10.4); MONOCYTES # (AUTO) 0.5 X10'3 (0-0.9); MONOCYTES % (AUTO) 7.5 % (2-12); NEUTROPHILS # (AUTO) 4.3 X10'3 (1.8-7.7); NEUTROPHILS % (AUTO) 60.9 % (42-75); PLATELET COUNT 444 X10'3 (140-440); RED BLOOD COUNT 3.57 X10'6 (4.20-5.60); RED CELL DISTRIBUTION WIDTH 14.5 % (11.5-14.5)
[2019-03-15 05:29] LABS: ALBUMIN 2.6 G/DL (3.4-5.0); ANION GAP 5 (8-16); BLOOD UREA NITROGEN 13 MG/DL (7-18); BUN/CREATININE RATIO 17.6 (6.6-38.0); CALCIUM 8.9 MG/DL (8.5-10.1); CHLORIDE 105 MMOL/L (99-107); CREATININE 0.74 MG/DL (0.40-0.90); GLUCOSE 90 MG/DL (70-104); POTASSIUM 4.1 MMOL/L (3.5-5.1); SODIUM 143 MMOL/L (135-145); TOTAL CARBON DIOXIDE 32.8 MMOL/L (24-32); eGFR > 90 ML/MIN
--- NOTE | 2019-03-15 06:47 | NUR ---
Problems reprioritized. Patient report given, questions answered & plan of care reviewed with MIRANDA Ferreira.
--- NOTE | 2019-03-15 06:50 | NUR ---
Patient in room RAMBO 341. I have received report from MIARNDA LUNDBERG and had the opportunity to ask questions and assume patient care.
[2019-03-15 07:00] VITALS: BP 104/63
[2019-03-15] MEDS: famotidine 10mg tablet PO SCH ×2 (07:39→20:00)
[2019-03-15] MEDS: naproxen sodium 220mg tablet PO SCH ×2 (07:39→20:00)
[2019-03-15] MEDS: lactobacillus rhamnosus 10,000 MMU CELLS/CAPSULE PO SCH ×2 (07:39→19:59)
[2019-03-15] MEDS: gabapentin 100mg capsule PO SCH ×3 (07:39→21:59)
[2019-03-15] MEDS: methadone 10mg tablet PO SCH (07:40)
[2019-03-15] MEDS: enoxaparin 30mg/0.3ml syringe SQ SCH (07:42)
[2019-03-15] MEDS: K and/or MAG REPLACEMENT MC SCH ×2 (08:00→20:00)
[2019-03-15] MEDS: VANCOMYCIN 750MG IV in NS 250 ML IV SCH ×2 (09:14→16:33)
--- NOTE | 2019-03-15 13:39 | NUR ---
Initial: Pt admit with MRSA, currently on abx for tx. Pt on a heart healthy diet, overall with 75-100% PO intake meeting nutrient needs. Recommend diet advancement to regular given no pertinent PMH. LBM 03/13. No nutrition diagnosis at this time. Will continue to follow. Recommendations: 1) Advance to regular diet given no pertinent PMH 2) Bowel care PRN 3) Wt per rx Addendum: 03/15/19 at [address] Amended: Links added.
[2019-03-15] MEDS: nicotine 14mg patch - 24hr TD SCH (13:57)
--- NOTE | 2019-03-15 14:05 | NUR ---
Patient abdomen large, distended and soft on palpation. She appears to be and Dr. Price notified of concern she may be and no test was done this admission and previous admission. However patient reports her LMP was "last week when I was here and I had my tubes tied." Dr. Price also states that CT did not show signs of .
--- NOTE | 2019-03-15 18:38 | NUR ---
Problems reprioritized. Patient report given, questions answered & plan of care reviewed with MIRANDA LUNDBERG.
--- NOTE | 2019-03-15 18:51 | NUR ---
Patient in room RAMBO 341. I have received report from MIRANDA Ferreira and had the opportunity to ask questions and assume patient care.
[2019-03-15 20:00] VITALS: BP 92/56
[2019-03-16] VITALS: BP 107/62
[2019-03-16] MEDS: VANCOMYCIN 750MG IV in NS 250 ML IV SCH ×2 (00:51→08:40)
--- NOTE | 2019-03-16 06:44 | NUR ---
Problems reprioritized. Patient report given, questions answered & plan of care reviewed with MIRANDA Ferreira.
[2019-03-16 07:00] VITALS: BP 110/66
[2019-03-16] MEDS: enoxaparin 30mg/0.3ml syringe SQ SCH (08:00)
[2019-03-16] MEDS: K and/or MAG REPLACEMENT MC SCH (08:00)
[2019-03-16] MEDS ORDERED: VANCOMYCIN LEVEL IV ONE (08:30)
[2019-03-16] MEDS: lactobacillus rhamnosus 10,000 MMU CELLS/CAPSULE PO SCH (08:37)
[2019-03-16] MEDS: famotidine 10mg tablet PO SCH (08:37)
[2019-03-16] MEDS: naproxen sodium 220mg tablet PO SCH (08:37)
[2019-03-16] MEDS: gabapentin 100mg capsule PO SCH ×2 (08:38→13:10)
[2019-03-16] MEDS: methadone 10mg tablet PO SCH (08:38)
[2019-03-16] MEDS: nicotine 14mg patch - 24hr TD SCH (08:39)
--- NOTE | 2019-03-16 09:00 | NUR ---
Dr. Price aware patient has no labs ordered for today except for mg and vanco trough. No new orders.
[2019-03-16 09:36] LABS: MAGNESIUM 1.9 MG/DL (1.5-2.4); VANCOMYCIN,TROUGH 7.2 UG/ML (6.0-14.0)
[2019-03-16 11:00] VITALS: BP 105/61
--- NOTE | 2019-03-16 16:15 | NUR ---
Patient is alert, oriented, and appropriate for discharge. Patient Extended IV removed, no tele present, but MIDLINE PLACED FOR HALFWAY THERAPY per MD Pate. Patient informed to report to [facility] for IV Vanco teaching and administration and the potential consequences of the recreational usage of the MIDLINE. Patient left with all belongings, patient verified understanding of D/c instructions, patient escorted down by member of staff.
[2019-03-16] MEDS ORDERED: VANCOmycin 1250MG/NS 250ml Bag 250 ML IV SCH (17:00)
[2019-03-17] MEDS ORDERED: VANCOMYCIN LEVEL IV ONE (16:30)
== END 2019-03-16 16:30 | disposition home health service (06) | DRG 720 ==
LOC: SUR 3N 19:24
PROVIDERS: ADMIT Internal Medicine; ATTEND Family Medicine
DX: A41.02 Sepsis due to Methicillin resistant Staphylococcus aureus (principal); F19.10 Other psychoactive substance abuse, uncomplicated; M25.551 Pain in right hip; M54.5 Low back pain; G89.4 Chronic pain syndrome; Z88.1 Allergy status to other antibiotic agents; Z88.2 Allergy status to sulfonamides
CPT/HCPCS: 36415; 76937; 80048; 80202; 83735; 85025; 87040; 87081; G0378; J1650; J1885; J3370; J7050

== ENCOUNTER 2019-03-17 17:20 | Emergency (ER) | payer MEDICAID ==
[~2019-03-17] VITALS: Ht 167.6 cm; Wt 58.1 kg
--- NOTE | 2019-03-17 20:45 | NUR ---
MULTIPLE ATTEMPTS TO DRAW BLOOD FROM LEFT UPPER ARM MIDLINE WITH PATIENT'S ARM OUT HEAD TURNED RIGHT COUGHING ETC. USING STERILE TECHNIQUE, DRESSING CHANGED WITH CENTRAL LINE DRESSING KIT: MODERATE AMOUNT OF DRIED BLOOD UNDER DRESSING, SITE CLEAR MIDLINE FLUSHES WITH SALINE FLUSHES: POWER PORT SLIGHTLY SLUGGISH BUT WITH 40 ML NS FLUSH, POWER PORT FLUSHES; OTHER PORT FLUSHED WNL WITH 20 ML NS FLUSH
--- NOTE | 2019-03-17 20:46 | NUR ---
DR BARBER INFORMED THAT PATIENT'S LAST DOSE OF VANCOMYCIN 1250 MG WAS AT 0900 THIS AM, ORDERS RECEIVED
[2019-03-17] MEDS ORDERED: VANCOmycin 1250MG/NS 250ml Bag 250 ML IV STA (20:53)
[2019-03-17 21:33] LABS: VANCOMYCIN,TROUGH 12.9 UG/ML (6.0-14.0)
[2019-03-17 22:01] LABS: BASOPHILS # (AUTO) 0.1 X10'3 (0-0.2); BASOPHILS % (AUTO) 0.7 % (0-1); EOSINOPHILS # (AUTO) 0.2 X10'3 (0-0.9); HEMATOCRIT 30.9 % (35.0-45.0); HEMOGLOBIN 10.4 g/dl (12.0-16.0); LYMPHOCYTES # (AUTO) 2.3 X10'3 (1.1-4.8); LYMPHOCYTES % (AUTO) 31.1 % (21-51); MEAN CORPUSCULAR HEMOGLOBIN 27.8 PG (27.0-31.0); MEAN CORPUSCULAR HGB CONC 33.7 g/dL (33.0-36.5); MEAN CORPUSCULAR VOLUME 82.5 FL (78-98); MEAN PLATELET VOLUME 7.1 FL (7.4-10.4); MONOCYTES # (AUTO) 0.6 X10'3 (0-0.9); MONOCYTES % (AUTO) 7.7 % (2-12); NEUTROPHILS # (AUTO) 4.3 X10'3 (1.8-7.7); NEUTROPHILS % (AUTO) 58.5 % (42-75); PLATELET COUNT 458 X10'3 (140-440); RED BLOOD COUNT 3.74 X10'6 (4.20-5.60); RED CELL DISTRIBUTION WIDTH 14.5 % (11.5-14.5); WHITE BLOOD COUNT 7.3 X10'3 (4.5-11.0)
[2019-03-17 22:27] LABS: ALANINE AMINOTRANSFERASE 42 U/L (12-78); ALBUMIN 2.9 G/DL (3.4-5.0); ALBUMIN/GLOBULIN RATIO 0.6 (1.1-1.5); ALKALINE PHOSPHATASE 124 IU/L (46-116); ANION GAP 9 (8-16); ASPARTATE AMINO TRANSFERASE 17 U/L (10-37); BILIRUBIN,TOTAL 0.2 MG/DL (0.1-1.0); BLOOD UREA NITROGEN 13 MG/DL (7-18); BUN/CREATININE RATIO 17.3 (6.6-38.0); CHLORIDE 103 MMOL/L (99-107); CREATININE 0.75 MG/DL (0.40-0.90); GLUCOSE 94 MG/DL (70-104); POTASSIUM 4.2 MMOL/L (3.5-5.1); SODIUM 140 MMOL/L (135-145); TOTAL CARBON DIOXIDE 28.2 MMOL/L (24-32); TOTAL PROTEIN 7.9 G/DL (6.4-8.2); eGFR 90 ML/MIN
[2019-03-17 23:21] VITALS: BP 115/64
== END 2019-03-17 23:05 | disposition home or self-care (01) ==
LOC: ER 17:21
DX: T82.594A Other mechanical complication of infusion catheter, initial encounter (principal); F12.90 Cannabis use, unspecified, uncomplicated; F11.90 Opioid use, unspecified, uncomplicated; Z98.890 Other specified postprocedural states; Z86.14 Personal history of Methicillin resistant Staphylococcus aureus infection; Z88.2 Allergy status to sulfonamides; Z79.899 Other long term (current) drug therapy; Y92.89 Other specified places as the place of occurrence of the external cause
CPT/HCPCS: 36415; 80053; 80202; 85025; 96365; 99285; J3370; 99283

== ENCOUNTER 2019-03-21 08:53 | Outpatient (CLI) | payer MEDICAID ==
[2019-03-21 10:09] LABS: BASOPHILS # (AUTO) 0.1 X10'3 (0-0.2); EOSINOPHILS # (AUTO) 0.1 X10'3 (0-0.9); HEMOGLOBIN 11.1 g/dl (12.0-16.0); MONOCYTES # (AUTO) 0.4 X10'3 (0-0.9); NEUTROPHILS # (AUTO) 3.7 X10'3 (1.8-7.7)
[2019-03-21 10:11] LABS: EOSINOPHILS % (AUTO) 1.6 % (0-6); HEMATOCRIT 32.5 % (35.0-45.0); LYMPHOCYTES # (AUTO) 1.8 X10'3 (1.1-4.8); LYMPHOCYTES % (AUTO) 29.8 % (21-51); MEAN CORPUSCULAR HEMOGLOBIN 27.8 PG (27.0-31.0); MEAN CORPUSCULAR VOLUME 81.5 FL (78-98); MEAN PLATELET VOLUME 7.7 FL (7.4-10.4); MONOCYTES % (AUTO) 6.4 % (2-12); NEUTROPHILS % (AUTO) 61.2 % (42-75); PLATELET COUNT 385 X10'3 (140-440); RED BLOOD COUNT 3.98 X10'6 (4.20-5.60); RED CELL DISTRIBUTION WIDTH 14.5 % (11.5-14.5)
[2019-03-21 10:24] LABS: ALANINE AMINOTRANSFERASE 25 U/L (12-78); ALBUMIN 3.1 G/DL (3.4-5.0); ALBUMIN/GLOBULIN RATIO 0.6 (1.1-1.5); ALKALINE PHOSPHATASE 118 IU/L (46-116); ANION GAP 9 (8-16); ASPARTATE AMINO TRANSFERASE 14 U/L (10-37); BILIRUBIN,TOTAL 0.3 MG/DL (0.1-1.0); BLOOD UREA NITROGEN 10 MG/DL (7-18); BUN/CREATININE RATIO 11.8 (6.6-38.0); CALCIUM 8.9 MG/DL (8.5-10.1); CHLORIDE 101 MMOL/L (99-107); CREATININE 0.85 MG/DL (0.40-0.90); GLUCOSE 85 MG/DL (70-104); POTASSIUM 3.6 MMOL/L (3.5-5.1); SODIUM 139 MMOL/L (135-145); TOTAL CARBON DIOXIDE 29.5 MMOL/L (24-32); TOTAL PROTEIN 8.3 G/DL (6.4-8.2); eGFR 77 ML/MIN
[2019-03-21 10:36] LABS: LARGE PLATELETS FEW; PLATELET ESTIMATE NORMAL
[2019-03-21 10:44] LABS: VANCOMYCIN,TROUGH 24.4 UG/ML (6.0-14.0)
== END 2019-03-21 23:59 | disposition home or self-care (01) ==
LOC: LAB 08:53
PROVIDERS: ATTEND Family Medicine
DX: D72.829 Elevated white blood cell count, unspecified (principal); B95.62 Methicillin resistant Staphylococcus aureus infection as the cause of diseases classified elsewhere; Z51.81 Encounter for therapeutic drug level monitoring
CPT/HCPCS: 36415; 80053; 80202; 85025

== ENCOUNTER 2019-05-03 11:30 | Outpatient (CLI) | payer MEDICAID ==
[2019-05-03 13:02] LABS: BASOPHILS % (AUTO) 0.5 % (0-1); EOSINOPHILS % (AUTO) 0.1 % (0-6); HEMATOCRIT 36.6 % (35.0-45.0); HEMOGLOBIN 12.2 g/dl (12.0-16.0); LYMPHOCYTES # (AUTO) 1.3 X10'3 (1.1-4.8); LYMPHOCYTES % (AUTO) 20.7 % (21-51); MEAN CORPUSCULAR HEMOGLOBIN 27.3 PG (27.0-31.0); MEAN CORPUSCULAR HGB CONC 33.5 g/dL (33.0-36.5); MEAN CORPUSCULAR VOLUME 81.5 FL (78-98); MEAN PLATELET VOLUME 7.6 FL (7.4-10.4); MONOCYTES # (AUTO) 0.2 X10'3 (0-0.9); MONOCYTES % (AUTO) 3.7 % (2-12); NEUTROPHILS # (AUTO) 4.5 X10'3 (1.8-7.7); PLATELET COUNT 328 X10'3 (140-440); RED BLOOD COUNT 4.48 X10'6 (4.20-5.60); RED CELL DISTRIBUTION WIDTH 16.3 % (11.5-14.5); WHITE BLOOD COUNT 6.1 X10'3 (4.5-11.0)
[2019-05-03 13:34] LABS: ALANINE AMINOTRANSFERASE 21 U/L (12-78); ALBUMIN 3.8 G/DL (3.4-5.0); ALBUMIN/GLOBULIN RATIO 0.8 (1.1-1.5); ALKALINE PHOSPHATASE 91 IU/L (46-116); ANION GAP 9 (8-16); ASPARTATE AMINO TRANSFERASE 19 U/L (10-37); BILIRUBIN,TOTAL 0.2 MG/DL (0.1-1.0); BLOOD UREA NITROGEN 11 MG/DL (7-18); BUN/CREATININE RATIO 12.6 (6.6-38.0); CALCIUM 9.1 MG/DL (8.5-10.1); CHLORIDE 102 MMOL/L (99-107); CREATININE 0.87 MG/DL (0.40-0.90); GLUCOSE 123 MG/DL (70-104); SODIUM 140 MMOL/L (135-145); TOTAL CARBON DIOXIDE 29.4 MMOL/L (24-32); TOTAL PROTEIN 8.6 G/DL (6.4-8.2); eGFR 75 ML/MIN
[2019-05-03 16:17] LABS: HIV ANTIBODY 1&2 RAPID NON-REACTIVE (Neg)
== END 2019-05-03 23:59 | disposition home or self-care (01) ==
LOC: LAB 11:30
PROVIDERS: ATTEND Family Medicine
DX: R10.84 Generalized abdominal pain (principal); Z11.3 Encounter for screening for infections with a predominantly sexual mode of transmission
CPT/HCPCS: 36415; 80053; 80074; 84439; 84443; 85025; 86592; 86703

== ENCOUNTER → 2023-09-06 | Outpatient (CLI) | payer MEDICAID | END | disposition home or self-care (01) | LOC: CARD DIAG 15:04 | PROVIDERS: ATTEND Family Medicine | DX: I37.1 Nonrheumatic pulmonary valve insufficiency (principal); R60.9 Edema, unspecified | CPT/HCPCS: 93306 ==

== ENCOUNTER 2023-12-23 10:30 | Outpatient (CLI) | payer MEDICAID | END 2023-12-23 23:59 | disposition home or self-care (01) | LOC: RAD 10:30 | PROVIDERS: ATTEND Physician Assistant | DX: F11.20 Opioid dependence, uncomplicated (principal) | CPT/HCPCS: 93005 ==

== ENCOUNTER 2024-03-20 14:05 | Outpatient (CLI) | payer MEDICAID | END 2024-03-20 23:59 | disposition home or self-care (01) | LOC: RAD 14:05 | PROVIDERS: ATTEND Physician Assistant | DX: F11.20 Opioid dependence, uncomplicated (principal); Z79.899 Other long term (current) drug therapy | CPT/HCPCS: 93005 ==